=== PATIENT | male | born 2000 | race Two or more races ===

== ENCOUNTER 2023-06-05 08:45 | Emergency (ER) | payer OTHER ==
[2023-06-05 09:07] VITALS: O2SAT 100
--- NOTE | 2023-06-05 09:24 | ED Physician Documentation ---
PD HPI UPPER EXT INJURY - Stated complaint Stated Complaint: SHOULDER PX - Chief complaint Chief Complaint: Trauma Ext - History obtained from History obtained from: Patient - Additonal information Additional information: The patient comes to the emergency department chief complaint of left shoulder pain that started 2 days ago. He states that he [place] SLAP [place] He states that his left shoulder function had improved quite a bit after this and he is getting good range of motion back. He states that 2 days ago, his jacket was on the ground and he bent over to pick it up with his left hand but he did not realize that the sleeve was caught under something and so as he came up, the jacket suddenly tensioned and jerked on his shoulder. The patient states he felt a sudden sharp pain in his anterior shoulder and that following this, he is felt increasing tightness in the shoulder as if it is swollen and his range of motion is significantly decreased. He states he can flex anteriorly at the shoulder to about 90 degrees and he can abduct to about 90 degrees. He is concerned that he has damaged the surgical site. He states he did not hear or feel a "pop" or "crack". He has not noticed any deformity. No swelling of the hand. No numbness or tingling distally. He has an appointment coming up with Dr. Nichols on Monday of this week which is in 4 days. PD PAST MEDICAL HISTORY - Past Medical History Cardiovascular: None Respiratory: None Neuro: None Endocrine/Autoimmune: None GI: None : None HEENT: None Psych: None Musculoskeletal: None Derm: None - Past Surgical History Past Surgical History: Yes Ortho: Other - Present Medications Home Medications: Ambulatory Orders Medication Instructions Recorded Confirmed Acetaminophen [Aphen] 1 tab PO PRN PRN 06/05/23 06/05/23 Ibuprofen [Advil] 1 tab PO PRN PRN 06/05/23 06/05/23 - Allergies Allergies/Adverse Reactions: Allergies Allergy/AdvReac Type Severity Reaction Status Date / Time No Known Drug Allergies Allergy Verified 06/05/23 09:00 - Social History Does the pt smoke?: No Smoking Status: Never smoker Does the pt drink ETOH?: No Does the pt have substance abuse?: No - Immunizations Immunizations are current?: Yes - POLST Patient has POLST: No PD ED PE NORMAL - Vitals Vital signs reviewed: Yes - General General: Alert and oriented X 3, No acute distress, Well developed/nourished - HEENT HEENT: Atraumatic, PERRL, EOMI, Moist mucous membranes - Neck Neck: Supple, no meningeal sign - Cardiac Cardiac: Strong equal pulses - Respiratory Respiratory: No respiratory distress - Derm Derm: Normal color, Warm and dry - Extremities Extremities: No deformity - Neuro Neuro: Alert and oriented X 3 - Psych Psych: Normal mood, Normal affect Results - Vitals Vitals: Oxygen O2 Source Room air - Rads (name of study) shoulder XR Relevant Findings:: Final report received, See rad report (nad) PD Medical Decision Making - ED course Complexity details: reviewed results, re-evaluated patient, considered differential, d/w patient ED course: I discussed the XR findings with the pt, and I suspect that the pt has strained the shoulder. The pt has an orthopedic appointment in 4 days, and I have encouraged him to keep that. Departure - Departure Disposition: 01 Home, Self Care Clinical Impression: Shoulder injury Qualifiers: Encounter type: initial encounter Laterality: left Qualified Code(s): S49.92XA - Unspecified injury of left shoulder and upper arm, initial encounter Condition: Stable Instructions: ED Sprain Shoulder Comments: Your shoulder x-rays look good. The radiologist has not found any abnormality whatsoever. Most likely, you strained the still healing areas and pulled on some scar tissue during injury. At this can cause a pain but generally, the arora rgical site is quite strong and it takes a lot more trauma than what he experienced to actually damage the site. However, it is very good that you have a follow-up appointment coming up soon with your orthopedist. You should definitely keep this and have him evaluate the shoulder as well. You may take ibuprofen and/or Tylenol as needed and apply ice packs. Please also do gentle arm circles to keep your range of motion up. Forms: PCP List Discharge Date/Time: 06/05/23 12:01
--- NOTE | 2023-06-05 09:44 | XRAY Report ---
PROCEDURE: Shoulder 2+V LT INDICATIONS: L shoulder pain TECHNIQUE: 3 views of the shoulder were acquired. COMPARISON: None. FINDINGS: Bones: No fractures or dislocations. No suspicious bony lesions. Visualized ribs appear intact. Soft tissues: No suspicious soft tissue calcifications. The visualized lungs are within normal limi ts. IMPRESSION: No acute bony abnormality. Reviewed by: Darion Ortiz MD on 06/05/2023 9:43 AM PDT Approved by: Darion Ortiz MD on 06/05/2023 9:43 AM PDT Station ID: [id number]
[2023-06-05 12:03] VITALS: BP 128/82
== END 2023-06-05 12:01 | disposition home or self-care (01) ==
LOC: ED 08:45
DX: S49.92XA Unspecified injury of left shoulder and upper arm, initial encounter (principal); X58.XXXA Exposure to other specified factors, initial encounter
CPT/HCPCS: 99283

== ENCOUNTER 2023-06-22 08:15 | Outpatient (CLI) | payer OTHER ==
--- NOTE | 2023-06-22 12:17 | XRAY Report ---
PROCEDURE: Wrist 3+V LT INDICATIONS: CONTUSION OF LEFT WRIST TECHNIQUE: 3 views of the wrist were acquired. COMPARISON: None. FINDINGS: Bones: No fractures or dislocations. No suspicious bony lesions. Soft tissues: No suspicious soft tissue calcifications or masses. IMPRESSION: No visualized acute fracture or dislocation. However, occult injury cannot be excluded. Recommend eliezer rt interval imaging follow-up in 7-10 days as clinically indicated for additional evaluation. Reviewed by: Netta Goodrich MD on 06/22/2023 12:16 PM PDT Approved by: Netta Goodrich MD on 06/22/2023 12:16 PM PDT Station ID: [id number]
== END 2023-06-22 08:30 | disposition home or self-care (01) ==
LOC: DI.N 08:15
PROVIDERS: ATTEND Physician Assistant
DX: S60.212A Contusion of left wrist, initial encounter (principal)

== ENCOUNTER 2023-11-02 08:01 | Outpatient (CLI) | payer OTHER ==
--- NOTE | 2023-11-02 10:50 | MRI Report ---
Wrist LT WO CLINICAL HISTORY: 23 years of age, Male, L WRIST PAIN. COMPARISON: None Technique: Multisequence, multiplanar MRI of the left wrist was performed Without contrast. IV CONTRAST: Not given FINDINGS: Patient motion, limits evaluation. Marrow, osseous and cartilaginous structures: No acute fracture. No focal chondral defects. No marrow contusion. Triangular fibrocartilage: Central disc perforation (8:39). Ligaments: The scapholunate and lunotriquetral ligaments are intact. The dorsal and volar extrinsic l igaments are normal in course, contour and signal. Carpal tunnel: The flexor tendons are intact without evidence of tendinosis, tenosynovitis, or discre te tear. Extensor tendons: The extensor tendons are intact without evidence of tendinosis, tenosynovitis, or d iscrete tear. Nerves: The median and ulnar nerves are normal in course, signal and thickness. The contents of Guyon 's canal are normal. Masses: No ganglion cyst. IMPRESSION: Patient motion, limits evaluation. Within this limitation, there is central disc perforation of the t riangular fibrocartilage. Reviewed by: Юлия Zuleta MD on 11/02/2023 10:49 AM PDT Approved by: Юлия Zuleta MD on 11/02/2023 10:49 AM PDT Station ID: [id number]
== END 2023-11-02 08:02 | disposition home or self-care (01) ==
LOC: DI 08:01
PROVIDERS: ATTEND Nurse Practitioner Family
DX: M94.8X3 Other specified disorders of cartilage, forearm (principal); M25.532 Pain in left wrist